=== PATIENT | male | born 1960 | race Caucasian/White ===

== ENCOUNTER 2019-09-09 13:55 | Emergency (ER) | payer OTHER ==
[2019-09-09] MEDS ORDERED: Lidocaine 2% w EPI 1:100,000* 20 ML MDV VIAL INJ ONE (14:07)
[2019-09-09] MEDS ORDERED: Tetan/Diph/Pertus SYR(Tdap)* 0.5 ML SYR(BOOSTRIX) use SYR contains LATEX IM ONE (14:07)
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
== END 2019-09-09 15:18 | disposition home or self-care (01) ==
LOC: UCCORT 13:55
DX: S01.81XA Laceration without foreign body of other part of head, initial encounter (principal); W22.8XXA Striking against or struck by other objects, initial encounter; Y92.9 Unspecified place or not applicable; Z23 Encounter for immunization; R03.0 Elevated blood-pressure reading, without diagnosis of hypertension; F17.220 Nicotine dependence, chewing tobacco, uncomplicated
CPT/HCPCS: 12013; 90471; 90715; 99201; G0463

== ENCOUNTER 2019-09-14 09:03 | Emergency (ER) | payer OTHER | END 2019-09-14 09:48 | disposition home or self-care (01) | LOC: UCCORT 09:03 ==